=== PATIENT | female | born 1995 | race Caucasian/White ===

== ENCOUNTER 2017-07-03 11:43 | Emergency (ER) | payer OTHER ==
[~2017-07-03] VITALS: Ht 165.1 cm; Wt 60.3 kg
[~2017-07-03 11:43] MED LIST: PREDNISONE50 MG PO; TESSALON PERLE100 MG PO; ZITHROMAX500 MG PO
[2017-07-03 12:33] LABS: HEMATOCRIT 39.2 % (36.0-46.0); MCH 32.2 PG (29.0-34.0); MCHC 34.7 G/DL (30.0-36.0); MCV 92.9 FL (83-99); MEAN PLAT.VOLUME 9.2 uM^3 (9.5-12.4); PLATELET COUNT 319 K/uL (156-360); RBC DIS.WIDTH-CV 11.6 % (11.8-14.6); RBC DIS.WIDTH-SD 39.2 % (39-53); RED BLOOD COUNT 4.22 M/uL (3.80-5.20); WHITE BLOOD COUNT 4.9 K/uL (4.1-10.2)
[2017-07-03 12:41] LABS: CHLORIDE 105 mEq/L (99-109); POTASSIUM 4.1 mEq/L (3.7-5.4); SODIUM 139 mEq/L (136-147)
[2017-07-03 12:44] LABS: GLUCOSE 96 mg/dL (70-99)
[2017-07-03 12:45] LABS: ANION GAP 11 MEQ/L (2-14); TOTAL BILIRUBIN 0.9 mg/dL (0.0-1.0)
[2017-07-03 12:47] LABS: ALKALINE PHOSPHATASE 43 IU/L (3-129); GFR ESTIMATE (CALCULATED) > 59 mL/min/
[2017-07-03 12:48] LABS: UREA NITROGEN (BUN) 8 mg/dL (9-23)
[2017-07-03 12:56] LABS: QUANTITATIVE HCG < 4.0 MIU/ML
[2017-07-03 13:14] LABS: ADD MIUA? YES; BILIRUBIN NEGATIVE; BLOOD SMALL; COLOR YELLOW ((YELLOW)); GLUCOSE (STRIP) NEGATIVE; KETONES NEGATIVE; LEUKOCYTES NEGATIVE; NITRITE NEGATIVE; PROTEIN (STRIP) NEGATIVE; SPECIFIC GRAVITY 1.006 (1.000-1.030); UROBILINOGEN 0.2 MG/DL (0.2-1.0)
[2017-07-03 13:22] LABS: BACTERIA RARE /HPF; EPITHELIAL CELLS RARE /HPF; MUCUS NONE SEEN /LPF; RED BLOOD CELLS 0-5 /HPF (0-5); UCUL ADDED? NO; WHITE BLOOD CELLS 0-5 /HPF (0-5)
[2017-07-03] MEDS ORDERED: MOTRIN800 MG PO (15:36)
[2017-07-03] MEDS ORDERED: NORCO 5/3251 TABLET PO (15:36)
[2017-07-03 18:00] VITALS: BP 147/68
[2017-07-05 13:01] LABS: CHLAMYDIA TRACHOMATIS NEGATIVE; NEISSERIA GONORRHOEAE NEGATIVE
== END 2017-07-03 18:18 | disposition home or self-care (01) ==
LOC: EME 11:43
PROVIDERS: Physician Assistant
DX: R10.2 Pelvic and perineal pain (principal); Z98.890 Other specified postprocedural states; M54.9 Dorsalgia, unspecified; R11.10 Vomiting, unspecified; Z86.79 Personal history of other diseases of the circulatory system; Z88.2 Allergy status to sulfonamides
CPT/HCPCS: 76856; 80053; 81003; 84702; 85027; 87210; 87491; 87591; 99281; 99284; J1885